=== PATIENT | female | born 1985 | race Caucasian/White ===

== ENCOUNTER 2020-04-03 17:40 | Emergency (ER) | payer OTHER ==
[2020-04-03] MEDS ORDERED: Sodium Chloride 0.9% 1,000 ML IV ONE (17:47)
[2020-04-03] MEDS ORDERED: Morphine 4 MG/ML Syringe IVPUSH ONE (18:00)
[2020-04-03] MEDS ORDERED: Ondansetron 4 MG/2 ML SDV IVPUSH ONE (18:00)
[2020-04-03 18:20] LABS: BLOOD UREA NITROGEN,BUN 12 mg/dL (7.0-18.0); CARBON DIOXIDE,CO2 26.8 mmol/L (21.0-32.0); CHLORIDE,CL 103 mmol/L (98-107); GLUCOSE RANDOM 120 mg/dL (74-106); LIPASE 164 U/L (73-393); POTASSIUM,K 3.8 mmol/L (3.5-5.1); SODIUM,NA 140 mmol/L (136-145)
--- NOTE | 2020-04-03 18:20 | EDM.PDOC ---
ED HPI GENERAL MEDICAL PROBLEM - General Chief Complaint: Abdominal Pain Stated Complaint: UPPER ABDOMINAL PAIN Time Seen by Provider: 04/03/20 17:41 Source of Information: Reports: Patient History Limitations: Reports: No Limitations - History of Present Illness INITIAL COMMENTS - FREE TEXT/NARRATIVE: HISTORY AND PHYSICAL: History of present illness: Patient is a 34-year-old female who presents to the emergency room with complaints of nausea, vomiting and right upper quadrant pain. She states over the past 3 to 4 days she has had mild nausea which has made her afraid to eat. A few hours prior to arrival she started having right upper quadrant pain. She did have some toast and vomited within a few minutes afterwards. She is concerned that this may be her gallbladder. States approximately 12 years ago she did have what she thought were "gallbladder attacks" but was told everything appeared normal after her ultrasound. This resolved within a few weeks. Since then she has not had any other "gallbladder attacks". Patient denies any fever, chills, headache, change in vision, syncope or near syncope. Denies any chest pain, back pain, shortness of breath or cough. Denies any diarrhea, constipation or dysuria. Has not noted any blood in urine or stool. Patient has been eating and drinking appropriately. Review of systems: As per history of present illness and below otherwise all systems reviewed and negative. Past medical history: As per history of present illness and as reviewed below otherwise noncontributory. Surgical history: As per history of present illness and as reviewed below otherwise noncontributory. Social history: See social history for further information Family history: As per history of present illness and as reviewed below otherwise noncontributory. Physical exam: General: Well developed and well nourished. Alert and orientated x 3. Nontoxic in appearance and in no acute distress. Vital signs are stable and have been r eviewed by me. Nursing notes were reviewed. HEENT: Atraumatic, normocephalic, pupils equal and reactive bilaterally, negative for conjunctival pallor or scleral icterus, mucous membranes moist, throat clear, neck supple, nontender, trachea midline. No drooling or trismus noted. No meningeal signs. No hot potato voice noted. Lungs: Clear to auscultation, breath sounds equal bilaterally, chest nontender. Normal work of breathing, no accessory muscles used. Heart: S1S2, regular rate and rhythm without overt murmur Abdomen: Soft, nondistended, right upper quadrant tender. Negative for masses or hepatosplenomegaly. Negative for costovertebral tenderness. Skin: Intact, warm, dry. No lesions or rashes noted. Hematologic: No petechiae or purpra. Mucosa appropriate color and normal nail bed color and refill. Extremities: Atraumatic, moves all extremities per self without difficulty or deficits, negative for cords or calf pain. Neurovascular unremarkable. Neuro: Awake, alert, oriented. Cranial nerves II through XII unremarkable. Cerebellum unremarkable. Motor and sensory unremarkable throughout. Exam nonfocal. Notes: Ultrasound shows small amount of sludge within the gallbladder. Gallbladder contains no shadowing gallstones or collateral bladder wall thickening. No biliary duct dilatation is seen. Mild fatty infiltration within the liver is likely present. She does have a urinary tract infection which we will treat with Macrobid, culture has been added. We discussed signs and symptoms that would prompt her to return to the Emergency Department. I did encourage her to keep a food journal and follow-up with the general surgeon as she should be reevaluated for gallbladder. Medication, follow up and supportive care measures were reviewed and discussed. Voices understanding and is agreeable to plan of care. Denies any further questions or concerns at this time. Diagnostics: CBC, CMP, Lipase, UA, HCG, Gallbladder US Therapeutics: IV fluids, Zofran, Morphine, Macrobid Prescription: Macrobid, Zofran Impression: Abdominal Pain, RUQ UTI Plan: 1. Today your physical exam shows irritation of the gallbladder. Labs show a UTI (bladder infection). 2. Take the antibiotic as prescribed. You can alternate Tylenol and ibuprofen for pain management. Zofran as needed for nausea. Make sure you are drinking plenty of fluids to prevent dehydration. As needed have a bland diet to avoid any furthering abdominal pain. 3. We always encourage you to follow up with your primary care provider or general surgeon for re-evaluation and further care/management. If your symptoms should worsen, new symptoms develop or any of the signs and symptoms we discussed should arise please return to the emergency room or call 911 (if needed). Definitive disposition and diagnosis as appropriate pending reevaluation and review of above. 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 ED EXAM, RENAL/ - Physical Exam Exam: See Below (See dictation) Course - Vital Signs Last Recorded V/S: Last Vital Signs Temp 97.7 F 04/03/20 17:53 Pulse 103 H 04/03/20 17:53 Resp 15 04/03/20 17:53 BP 121/77 04/03/20 17:53 Pulse Ox 98 04/03/20 17:53 - Orders/Labs/Meds Orders: Active Orders 24 hr Category Date Time Status CULTURE URINE [RM] Stat Lab 04/03/20 17:53 Received Labs: Laboratory Tests 04/03/20 04/03/20 04/03/20 Range/Units 17:50 17:50 17:53 WBC 9.33 (4.0-11.0) K/uL RBC 4.94 (4.30-5.90) M/uL Hgb 14.7 (12.0-16.0) g/dL Hct 43.3 (36.0-46.0) % MCV 87.7 (80.0-98.0) fL MCH 29.8 (27.0-32.0) pg MCHC 33.9 (31.0-37.0) g/dL RDW Std Deviation 40.9 (28.0-62.0) fl RDW Coeff of Wallace 13 (11.0-15.0) % Plt Count 296 (150-400) K/uL MPV 9.70 (7.40-12.00) fL Neut % (Auto) 68.4 (48.0-80.0) % Lymph % (Auto) 22.6 (16.0-40.0) % [place] % (Auto) 8.7 (0.0-15.0) % Eos % (Auto) 0.2 (0.0-7.0) % Baso % (Auto) 0.1 (0.0-1.5) % Neut # (Auto) 6.4 H (1.4-5.7) K/uL Lymph # (Auto) 2.1 (0.6-2.4) K/uL [place] # (Auto) 0.8 (0.0-0.8) K/uL Eos # (Auto) 0.0 (0.0-0.7) K/uL Baso # (Auto) 0.0 (0.0-0.1) K/uL Nucleated RBC % 0.0 /100WBC Nucleated RBCs # 0 K/uL Sodium 140 (136-145) mmol/L Potassium 3.8 (3.5-5.1) mmol/L Chloride 103 (98-107) mmol/L Carbon Dioxide 26.8 (21.0-32.0) mmol/L BUN 12 (7.0-18.0) mg/dL Creatinine 0.9 (0.6-1.0) mg/dL Est Cr Clr Drug Dosing 69.66 mL/min Estimated GFR (MDRD) > 60.0 ml/min Glucose 120 H (74-106) mg/dL Calcium 10.0 (8.5-10.1) mg/dL Total Bilirubin 0.3 (0.2-1.0) mg/dL AST 41 H (15-37) IU/L ALT 49 (14-63) IU/L Alkaline Phosphatase 119 H (46-116) U/L Total Protein 7.4 (6.4-8.2) g/dL Albumin 3.9 (3.4-5.0) g/dL Globulin 3.5 (2.6-4.0) g/dL Albumin/Globulin Ratio 1.1 (0.9-1.6) Lipase 164 (73-393) U/L Urine Color YELLOW Urine Appearance SLT CLOUDY Urine pH 6.0 (5.0-8.0) Ur Specific [place] 1.025 (1.001-1.035) Urine Protein NEGATIVE (NEGATIVE) mg/dL Urine Glucose (UA) NEGATIVE (NEGATIVE) mg/dL Urine Ketones NEGATIVE (NEGATIVE) mg/dL Urine Occult Blood MODERATE H (NEGATIVE) Urine Nitrite NEGATIVE (NEGATIVE) Urine Bilirubin NEGATIVE (NEGATIVE) Urine Urobilinogen 0.2 (<2.0) EU/dL Ur Leukocyte Esterase SMALL H (NEGATIVE) Urine RBC 1-3 (0-2/HPF) Urine WBC 2-5 (0-5/HPF) Ur Epithelial Cells FEW (NONE-FEW) Urine Bacteria 2+ H (NEGATIVE) Urine HCG, Qual (NEGATIVE) 04/03/20 Range/Units 17:53 WBC (4.0-11.0) K/uL RBC (4.30-5.90) M/uL Hgb (12.0-16.0) g/dL Hct (36.0-46.0) % MCV (80.0-98.0) fL MCH (27.0-32.0) pg MCHC (31.0-37.0) g/dL RDW Std Deviation (28.0-62.0) fl RDW Coeff of Wallace (11.0-15.0) % Plt Count (150-400) K/uL MPV (7.40-12.00) fL Neut % (Auto) (48.0-80.0) % Lymph % (Auto) (16.0-40.0) % [place] % (Auto) (0.0-15.0) % Eos % (Auto) (0.0-7.0) % Baso % (Auto) (0.0-1.5) % Neut # (Auto) (1.4-5.7) K/uL Lymph # (Auto) (0.6-2.4) K/uL [place] # (Auto) (0.0-0.8) K/uL Eos # (Auto) (0.0-0.7) K/uL Baso # (Auto) (0.0-0.1) K/uL Nucleated RBC % /100WBC Nucleated RBCs # K/uL Sodium (136-145) mmol/L Potassium (3.5-5.1) mmol/L Chloride (98-107) mmol/L Carbon Dioxide (21.0-32.0) mmol/L BUN (7.0-18.0) mg/dL Creatinine (0.6-1.0) mg/dL Est Cr Clr Drug Dosing mL/min Estimated GFR (MDRD) ml/min Glucose (74-106) mg/dL Calcium (8.5-10.1) mg/dL Total Bilirubin (0.2-1.0) mg/dL AST (15-37) IU/L ALT (14-63) IU/L Alkaline Phosphatase (46-116) U/L Total Protein (6.4-8.2) g/dL Albumin (3.4-5.0) g/dL Globulin (2.6-4.0) g/dL Albumin/Globulin Ratio (0.9-1.6) Lipase (73-393) U/L Urine Color Urine Appearance Urine pH (5.0-8.0) Ur Specific [place] (1.001-1.035) Urine Protein (NEGATIVE) mg/dL Urine Glucose (UA) (NEGATIVE) mg/dL Urine Ketones (NEGATIVE) mg/dL Urine Occult Blood (NEGATIVE) Urine Nitrite (NEGATIVE) Urine Bilirubin (NEGATIVE) Urine Urobilinogen (<2.0) EU/dL Ur Leukocyte Esterase (NEGATIVE) Urine RBC (0-2/HPF) Urine WBC (0-5/HPF) Ur Epithelial Cells (NONE-FEW) Urine Bacteria (NEGATIVE) Urine HCG, Qual NEGATIVE (NEGATIVE) Meds: Medications Discontinued Medications Generic Name Dose Route Start Last Admin Trade Name [place] PRN Reason Stop Dose Admin Ciprofloxacin 500 mg 04/03/20 18:33 04/03/20 19:17 Ciprofloxacin Hcl PO 04/03/20 18:34 Not Given ONETIME ONE Sodium Chloride 1,000 mls @ 999 mls/hr 04/03/20 17:47 04/03/20 18:07 Normal Saline IV 04/03/20 18:47 999 mls/hr STAT ONE Administration Ketorolac Tromethamine 30 mg 04/03/20 19:04 04/03/20 19:17 Toradol IVPUSH 04/03/20 19:05 30 mg ONETIME ONE Administration Morphine Sulfate 4 mg 04/03/20 18:00 04/03/20 18:08 Morphine IVPUSH 04/03/20 18:01 4 mg ONETIME ONE Administration Nitrofurantoin Macrocrystals 100 mg 04/03/20 19:08 04/03/20 19:17 Macrobid PO 04/03/20 19:09 100 mg ONETIME ONE Administration Ondansetron HCl 4 mg 04/03/20 18:00 04/03/20 18:08 Zofran IVPUSH 04/03/20 18:01 4 mg ONETIME ONE Administration Departure - Departure Time of Disposition: 19:12 Disposition: Home, Self-Care 01 Clinical Impression: Abdominal pain Qualifiers: Abdominal location: right upper quadrant Qualified Code(s): R10.11 - Right upper quadrant pain UTI (urinary tract infection) Qualifiers: Urinary tract infection type: acute cystitis Hematuria presence: without hematuria Qualified Code(s): N30.00 - Acute cystitis without hematuria - Discharge Information Prescriptions: Nitrofurantoin Monohyd/M-Cryst [Macrobid 100 mg Capsule] 100 mg PO BID 5 Days #10 capsule Ondansetron [Zofran ODT] 4 mg PO Q6H PRN #8 tab.dis PRN Reason: Nausea Instructions: Urinary Tract Infection, Adult Referrals: PCP,None [Primary Care Provider] - Forms: ED Department Discharge Additional Instructions: The following information is given to patients seen in the emergency department who are being discharged to home. This information is to outline your options for follow-up care. We provide all patients seen in our emergency department with a follow-up referral. The need for follow-up, as well as the timing and circumstances, are variable depending upon the specifics of your emergency department visit. If you don't have a primary care physician on staff, we will provide you with a referral. We always advise you to contact your personal physician following an emergency department visit to inform them of the circumstance of the visit and for follow-up with them and/or the need for any referrals to a consulting specialist. The emergency department will also refer you to a specialist when appropriate. This referral assures that you have the opportunity for follow-up care with a specialist. All of these measure are taken in an effort to provide you with optimal care, which includes your follow-up. Under all circumstances we always encourage you to contact your private physician who remains a resource for coordinating your care. When calling for follow-up care, please make the office aware that this follow-up is from your recent emergency room visit. If for any reason you are refused follow-up, please contact the [facility] Emergency Department at and asked to speak to the emergency department charge nurse. [facility] [address] [place] [id number] [facility] [address] [place] [address] Thank you for choosing the [facility] emergency department in [place] for your medical needs today. It was a pleasure caring for you. Today you were seen in the emergency department for righter upper quadrant pain. 1. Today your physical exam shows irritation of the gallbladder. Labs show a UTI (bladder infection). 2. Take the antibiotic as prescribed. You can alternate Tylenol and ibuprofen for pain management. Zofran as needed for nausea. Make sure you are drinking plenty of fluids to prevent dehydration. As needed have a bland diet to avoid any furthering abdominal pain. 3. We always encourage you to follow up with your primary care provider or general surgeon for re-evaluation and further care/management. If your symptoms should worsen, new symptoms develop or any of the signs and symptoms we discussed should arise please return to the emergency room or call 911 (if needed). Sepsis Event Note (ED) - Evaluation Sepsis Screening Result: No Definite Risk - Focused Exam Vital Signs: Vital Signs Temp Pulse Resp BP Pulse Ox 04/03/20 17:53 97.7 F 103 H 15 121/77 98 - My Orders Last 24 Hours: My Active Orders 04/03/20 17:53 CULTURE URINE [RM] Stat - Assessment/Plan Last 24 Hours: My Active Orders 04/03/20 17:53 CULTURE URINE [RM] Stat
[2020-04-03] MEDS ORDERED: Ciprofloxacin 500 MG Tab PO ONE (18:33)
--- NOTE | 2020-04-03 18:57 | US ---
Limited abdominal ultrasound: Multiple real-time images of the upper right abdomen were obtained. Comparison: No prior abdominal ultrasound is available, previous abdominal x-ray of 08/28/19 is available. Findings: Liver is slightly echogenic possibly due to mild fatty infiltration. Gallbladder contains no shadowing gallstones but shows evidence of mild amount of sludge. No gallbladder wall thickening or biliary duct dilatation is seen. Right kidney shows no hydronephrosis or mass. Right kidney has a length of 9.6 cm. Pancreas shows no discrete abnormality. Aorta shows no aneurysm. Inferior vena cava is patent. Impression: 1. Small amount of sludge within the gallbladder. Gallbladder contains no shadowing gallstones or gallbladder wall thickening. No biliary duct dilatation is seen. 2. Mild fatty infiltration within the liver is likely present. 3. No additional abnormality is identified on right upper quadrant abdominal ultrasound. Diagnostic code #3 This report was dictated in MDT
[2020-04-03] MEDS ORDERED: Ketorolac 30 MG/ML SDV IVPUSH ONE (19:04)
[2020-04-03] MEDS ORDERED: Nitrofurantoin Monohydrate/Macrocrystalline 100 MG Cap PO ONE (19:08)
== END 2020-04-03 19:45 | disposition home or self-care (01) ==
LOC: MW.ED 17:40
DX: N30.00 Acute cystitis without hematuria (principal); R10.11 Right upper quadrant pain; Z88.1 Allergy status to other antibiotic agents; Z88.0 Allergy status to penicillin; Z88.2 Allergy status to sulfonamides
CPT/HCPCS: 36415; 76705; 80053; 81001; 81025; 83690; 85025; 87086; 87088; 87186; 96361; 96374; 96375; 99284; A9270; J1885; J2270; J2405; J7030

== ENCOUNTER 2020-04-13 07:31 | Day surgery (SDC) | payer OTHER ==
[~2020-04-13 07:31] MED LIST: Lactated Ringers 1,000 ML IV SCH; cefOXitin 2 GM in Premix Bag 1 BAG IV ONE
[2020-04-13] MEDS ORDERED: Midazolam 1 MG/ML 2 ML SDV ONE (08:00)
[2020-04-13] MEDS ORDERED: Propofol 200 MG/20 ML SDV ONE (08:00)
[2020-04-13] MEDS ORDERED: Ondansetron 4 MG/2 ML SDV ONE (08:00)
[2020-04-13] MEDS ORDERED: fentaNYL 100 MCG/2 ML SDV ONE ×2 (08:00→09:18)
[2020-04-13] MEDS ORDERED: Lidocaine 2% 5 ML SDV ONE (08:00)
[2020-04-13] MEDS ORDERED: Scopolamine 1.5 MG Transdermal Patch TRDERM PRN (08:16)
--- NOTE | 2020-04-13 08:16 | PCM.PREANE ---
Preanesthetic Assessment - Anesthesia/Transfusion/Family Hx Anesthesia History: Prior Anesthesia Without Reaction Family History of Anesthesia Reaction: No Transfusion History: No Prior Transfusion(s) - Review of Systems General: No Symptoms Pulmonary: No Symptoms Cardiovascular: No Symptoms Gastrointestinal: No Symptoms Neurological: No Symptoms Other: Reports: None - Physical Assessment NPO Status Date: 04/12/20 Height: 5 ft 2 in Weight: 78.471 kg ASA Class: 2 Mental Status: Alert & Oriented x3 Airway Class: Mallampati = 1 Dentition: Reports: Normal Dentition ROM/Head Extension: Full Lungs: Clear to Auscultation, Normal Respiratory Effort Cardiovascular: Regular Rate, Regular Rhythm - Allergies Allergies/Adverse Reactions: Allergies Allergy/AdvReac Type Severity Reaction Status Date / Time azithromycin Allergy Stomach Verified 04/09/20 09:41 Upset hydrocodone Allergy Hives Verified 04/09/20 09:41 Penicillins Allergy Hives Verified 04/09/20 09:41 Sulfa (Sulfonamide Allergy Hives Verified 04/09/20 09:41 Antibiotics) - Blood Blood Available: No - Anesthesia Plan Pre-Op Medication Ordered: Other (scop) - Acknowledgements Anesthesia Type Planned: General Anesthesia Pt an Appropriate Candidate for the Planned Anesthesia: Yes Alternatives and Risks of Anesthesia Discussed w Pt/Guardian: Yes Pt/Guardian Understands and Agrees with Anesthesia Plan: Yes Additional Comments: PMH: migraine, renal stones, gout PreAnesthesia Questionnaire HEENT History: Reports: None Cardiovascular History: Reports: None Respiratory History: Reports: None Gastrointestinal History: Reports: Cholelithiasis Other Gastrointestinal History: states has been having occasional heart burn and right upper quad pain recently Genitourinary History: Reports: Renal Calculus 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) Other OB/BYN History: Partial Hysterectomy Musculoskeletal History: Reports: Gout Neurological History: Reports: Migraines Psychiatric History: Reports: Anxiety Endocrine/Metabolic History: Reports: Obesity/BMI 30+ Hematologic History: Reports: None Immunologic History: Reports: None Oncologic (Cancer) History: Reports: None Dermatologic History: Reports: None - Infectious Disease History Infectious Disease History: Reports: None - Past Surgical History Head Surgeries/Procedures: Reports: None HEENT Surgical History: Reports: Oral Surgery Other HEENT Surgeries/Procedures: states had an impacted tooth removed at age 17 Female Surgical History: Reports: Hysterectomy, Kidney stone extraction - SUBSTANCE USE Smoking Status *Q: Never Smoker Recreational Drug Use History: No - HOME MEDS Home Medications: Home Meds . [No Known Home Meds] 04/09/20 [History] - CURRENT (IN HOUSE) MEDS Current Meds: Current Medications Lactated Ringer's (Ringers, Lactated) 1,000 mls @ 125 mls/hr IV ASDIRECTED ANAMARIA Discontinued Medications Fentanyl (Sublimaze) Confirm Administered Dose 100 mcg .ROUTE .STK-MED ONE Stop: 04/13/20 08:01 Cefoxitin Sodium 2 gm/ Premix 50 mls @ 100 mls/hr IV ONETIME ONE Stop: 04/13/20 07:29 Lidocaine (Xylocaine-Mpf 2%) Confirm Administered Dose 5 ml .ROUTE .STK-MED ONE Stop: 04/13/20 08:01 Midazolam HCl (Versed 1 Mg/Ml) Confirm Administered Dose 2 mg .ROUTE .STK-MED ONE Stop: 04/13/20 08:01 Ondansetron HCl (Zofran) Confirm Administered Dose 4 mg .ROUTE .STK-MED ONE Stop: 04/13/20 08:01 Propofol (Diprivan 20 Ml) Confirm Administered Dose 200 mg .ROUTE .STK-MED ONE Stop: 04/13/20 08:01
[2020-04-13] MEDS ORDERED: HYDROmorphone 2 MG/ML Syringe ONE (08:38)
[2020-04-13] MEDS ORDERED: cefOXitin 1 GM Vial ONE (08:46)
[2020-04-13] MEDS ORDERED: ceFAZolin 1 GM Vial ONE (08:47)
[2020-04-13] MEDS ORDERED: Bupivacaine 0.5% 10 ML SDV ONE (08:47)
[2020-04-13] MEDS ORDERED: Famotidine 20 MG/2 ML SDV ONE (08:56)
[2020-04-13] MEDS ORDERED: diphenhydrAMINE 50 MG/ML SDV ONE (08:57)
[2020-04-13] MEDS ORDERED: Dexamethasone 4 MG/ML 5 ML MDV ONE (08:57)
[2020-04-13] MEDS ORDERED: Naloxone 0.4 MG/ML Syringe IVPUSH PRN (09:41)
[2020-04-13] MEDS ORDERED: 50% Dextrose in Water 50 ML Syringe IVPUSH PRN (09:41)
[2020-04-13] MEDS ORDERED: Albuterol 0.083% 2.5 MG/3 ML Neb Soln NEB PRN (09:41)
[2020-04-13] MEDS ORDERED: fentaNYL 100 MCG/2 ML SDV IVPUSH PRN (09:41)
[2020-04-13] MEDS ORDERED: Atropine 0.1 MG/ML 10 ML Syringe IVPUSH PRN ×2 (09:41)
[2020-04-13] MEDS ORDERED: EPINEPHrine 1:10,000 1 MG/10 ML Syringe IVPUSH PRN (09:41)
[2020-04-13] MEDS ORDERED: Ketorolac 30 MG/ML SDV ONE (09:49)
[2020-04-13] MEDS ORDERED: Bupivacaine 0.5% 30 ML SDV ONE (09:51)
[2020-04-13] MEDS ORDERED: Lidocaine 1% 20 ML MDV ONE (09:53)
[2020-04-13] MEDS ORDERED: Glycopyrrolate 0.2 MG/ML SDV ONE (09:55)
[2020-04-13] MEDS ORDERED: Morphine 10 MG/ML Syringe IVPUSH PRN (10:23)
[2020-04-13] MEDS ORDERED: Ketorolac 10 MG Tab PO PRN (10:23)
--- NOTE | 2020-04-13 10:25 | PCM.OPNOTE ---
- General Post-Op/Procedure Note Date of Surgery/Procedure: 04/13/20 Operative Procedure(s): Laparoscopic cholecystectomy Pre Op Diagnosis: Right upper quadrant pain. Biliary sludge. Biliary colic. Post-Op Diagnosis: Same Anesthesia Technique: General ET Tube (ASA II) Primary Surgeon: Jamie Higuera Fluid Replacement, Intraop: 2,200 EBL in mLs: 15 Condition: Good Free Text/Narrative:: DICTATION [id number] CPT CODE [id number]
[2020-04-13] MEDS ORDERED: Lactated Ringers 1,000 ML IV SCH (10:30)
--- NOTE | 2020-04-13 10:53 | PCM.POSTAN ---
POST ANESTHESIA ASSESSMENT - MENTAL STATUS Mental Status: Alert, Oriented - VITAL SIGNS Vital Signs: Last Vital Signs Temp 98.1 F 04/13/20 10:17 Pulse 95 04/13/20 10:46 Resp 10 L 04/13/20 10:46 BP 103/60 04/13/20 10:46 Pulse Ox 92 L 04/13/20 10:46 - RESPIRATORY Respiratory Status: Respiratory Rate WNL, Airway Patent, O2 Saturation Stable - CARDIOVASCULAR CV Status: Pulse Rate WNL, Blood Pressure Stable - GASTROINTESTINAL GI Status: No Symptoms - PAIN Pain Score: 0 - POST OP HYDRATION Hydration Status: Adequate & Stable - OBSERVATIONS Free Text/Narrative:: No nausea and requiring no additional pain medication after surgery. Pt stable for tx to phase II recovery.
[2020-04-13] MEDS ORDERED: oxyCODONE 5 MG Tab PO ONE (11:58)
--- NOTE | 2020-04-13 12:53 | OR ---
SURGEON: Jamie Higuera M.D. DATE OF PROCEDURE: 04/13/2020 OPERATION PERFORMED: Laparoscopic cholecystectomy. PRIMARY SURGEON: Jamie Higuera MD MEDICAL DOCTOR NUCLEAR MEDICINE: assistant head cashier: Carole Plasencia. ANESTHESIA: General endotracheal. ASA CLASSIFICATION: II. PREOPERATIVE DIAGNOSIS: Right upper quadrant pain with biliary colic, gallbladder sludge. POSTOPERATIVE DIAGNOSIS: Right upper quadrant pain with biliary colic, gallbladder sludge. ESTIMATED BLOOD LOSS: 15 mL. INTRAOPERATIVE FLUID REPLACEMENT: 2200 mls of crystalloid. DESCRIPTION OF PROCEDURE: The patient was taken to the operating room, placed on the operating table in the supine position. Time-out was called for appropriate identification of the patient and procedure. Thigh-high TEDs and sequential compression boots were placed. Following satisfactory attainment of general endotracheal anesthesia, a Carroll catheter was placed in the patient's urinary bladder. The abdomen was prepped with DuraPrep solution. Sterile drapes were applied. Skin just below the umbilicus was infiltrated with 0.5% Marcaine solution. Skin incision was made and deepened through the subcutaneous tissue obtaining hemostasis with the use of electrocautery. Veress needle was introduced into the peritoneal cavity. Saline drop test was positive. Carbon dioxide pneumoperitoneum was established with the release set at 13 cm of water. Once satisfactory pneumoperitoneum was established, 12 mm subxiphoid, 5 mm midclavicular, and 5 mm anterior axillary ports were placed. Each incision had preemptively been infiltrated with 0.5% Marcaine solution. The patient was now positioned with her feet down and rolled to the left. Under camera vision, the 12 mm subxiphoid, midclavicular, and anterior axillary ports were placed. Gallbladder was grasped and cholecystohepatic triangle was dissected free obtaining a good critical view of both the cystic artery and cystic duct. Each structure was serially hemoclipped and divided with the laparoscopic Metzenbaum scissors. The gallbladder was then dissected away from its bed using electrocautery. Small bleeding points were electrocoagulated. No bile was noted. The gallbladder was not entered during the procedure. Once the gallbladder was amputated, this was placed in an Endopouch. The right upper quadrant was irrigated with 1% Ancef solution and all fluid was aspirated. The dome of the diaphragm was then irrigated with 250 mL of saline containing 10 mL of 0.5% Marcaine solution, that fluid was left in place. The bed of the gallbladder was packed with 1 Surgicel and held in place. With that all accomplished, the Endopouch containing gallbladder and 12 mm subxiphoid port were removed. Under camera vision, the 5 mm midclavicular and anterior axillary ports were removed and finally the infraumbilical camera and port were removed. The subxiphoid and infraumbilical incisions were closed in 2 layers approximating the subcutaneous tissue with 3-0 Vicryl and the skin with subcuticular 4-0 Monocryl. The anterior axillary and midclavicular incisions were closed with subcuticular 4-0 Monocryl. All incisions were Steri-Stripped and dressed with sterile Tegaderm pads. Sponge, needle, and instrument counts were all correct. Carroll catheter was removed prior to emergence from anesthesia. Following emergence from anesthesia and extubation, the patient was taken to recovery room in stable condition. JULIEN / MARIELENA /[id number] ANAHI
--- NOTE | 2020-04-13 12:57 | PCM48HPAN ---
Post Anesthesia Note - EVALUATION WITHIN 48HRS OF ANESTHETIC Vital Signs in Normal Range: Yes Patient Participated in Evaluation: Yes Respiratory Function Stable: Yes Airway Patent: Yes Cardiovascular Function Stable: Yes Hydration Status Stable: Yes Pain Control Satisfactory: Yes Nausea and Vomiting Control Satisfactory: Yes Mental Status Recovered: Yes Vital Signs: Last Vital Signs Temp 98.1 F 04/13/20 10:17 Pulse 96 04/13/20 10:51 Resp 11 L 04/13/20 10:51 BP 106/68 04/13/20 10:51 Pulse Ox 96 04/13/20 10:51
== END 2020-04-13 13:30 | disposition home or self-care (01) ==
LOC: MW.SDS 07:31
PROVIDERS: ATTEND Surgery
DX: K80.44 Calculus of bile duct with chronic cholecystitis without obstruction (principal); K82.8 Other specified diseases of gallbladder; E66.9 Obesity, unspecified; N20.0 Calculus of kidney; M10.9 Gout, unspecified; F41.9 Anxiety disorder, unspecified; Z88.0 Allergy status to penicillin; Z88.1 Allergy status to other antibiotic agents; Z88.5 Allergy status to narcotic agent; Z88.2 Allergy status to sulfonamides; Z68.31 Body mass index [BMI] 31.0-31.9, adult; Z90.710 Acquired absence of both cervix and uterus; Z83.79 Family history of other diseases of the digestive system; Z72.89 Other problems related to lifestyle
CPT/HCPCS: 47562; A9270; J0690; J0694; J1100; J1170; J1200; J1885; J2001; J2250; J2405; J2704; J3490; J7120; 00790; 88304; J3010

== ENCOUNTER 2021-03-22 01:14 | Emergency (ER) | payer OTHER ==
[2021-03-22] MEDS ORDERED: Sodium Chloride 0.9% 1,000 ML IV ONE (03:00)
--- NOTE | 2021-03-22 03:04 | EDM.PDOC ---
ED HPI GENERAL MEDICAL PROBLEM - General Chief Complaint: Abdominal Pain Stated Complaint: APPENDICITIS OR KIDNEY STONE Time Seen by Provider: 03/22/21 02:57 Source of Information: Reports: Patient History Limitations: Reports: No Limitations - History of Present Illness INITIAL COMMENTS - FREE TEXT/NARRATIVE: Patient is a 35-year-old female presents today for right-sided abdominal pain. Patient states that pain started few days ago she saw her PMD who did labs and a CT scan. She did not know the results of the scan has not been called with them. States she came in today because she has some increased vomiting and pain. She was sent home with Toradol but did not continue taking the Toradol she read could damage her kidneys. She states the pain is similar to the pain she is been having but it has moved to her right lower quadrant now. She is not having any urinary symptoms no blood in her urine or increased urinary frequency. No fever chills. Right Flank Pain Score (Numeric/FACES): 10 - Related Data Allergies Allergy/AdvReac Type Severity Reaction Status Date / Time azithromycin Allergy Stomach Verified 04/13/20 09:05 Upset hydrocodone Allergy Hives Verified 04/13/20 09:05 Penicillins Allergy Hives Verified 04/13/20 09:05 Sulfa (Sulfonamide Allergy Hives Verified 04/13/20 09:05 Antibiotics) Home Meds: Home Meds . [No Known Home Meds] 03/22/21 [History] Past Medical History HEENT History: Reports: None Cardiovascular History: Reports: None Respiratory History: Reports: None Gastrointestinal History: Reports: Cholelithiasis Other Gastrointestinal History: states has been having occasional heart burn and right upper quad pain recently Genitourinary History: Reports: Renal Calculus [employer] History: Reports: Other (See Below) Other [employer] History: Partial Hysterectomy Musculoskeletal History: Reports: Gout Neurological History: Reports: Migraines Psychiatric History: Reports: Anxiety Endocrine/Metabolic History: Reports: Obesity/BMI 30+ Hematologic History: Reports: None Immunologic History: Reports: None Oncologic (Cancer) History: Reports: None Dermatologic History: Reports: None - Infectious Disease History Infectious Disease History: Reports: None - Past Surgical History Head Surgeries/Procedures: Reports: None HEENT Surgical History: Reports: Oral Surgery Other HEENT Surgeries/Procedures: states had an impacted tooth removed at age 17 Female Surgical History: Reports: Hysterectomy, Kidney stone extraction Social & Family History - Family History Family Medical History: No Pertinent Family History - Caffeine Use Caffeine Use: Reports: None ED ROS GENERAL - Review of Systems Review Of Systems: See Below Constitutional: Reports: No Symptoms HEENT: Reports: No Symptoms Respiratory: Reports: No Symptoms Cardiovascular: Reports: No Symptoms Endocrine: Reports: No Symptoms GI/Abdominal: Reports: Abdominal Pain : Reports: No Symptoms Musculoskeletal: Reports: No Symptoms Skin: Reports: No Symptoms Neurological: Reports: No Symptoms Psychiatric: Reports: No Symptoms Hematologic/Lymphatic: Reports: No Symptoms Immunologic: Reports: No Symptoms ED EXAM, GI/ABD - Physical Exam Exam: See Below Exam Limited By: No Limitations General Appearance: Alert, WD/WN, No Apparent Distress Neck: Normal Inspection Respiratory/Chest: No Respiratory Distress, Lungs Clear, Normal Breath Sounds Cardiovascular: Normal Peripheral Pulses, Regular Rate, Rhythm GI/Abdominal Exam: Normal Bowel Sounds, Soft, Non-Tender Neurological: Alert, Oriented Course - Vital Signs Last Recorded V/S: Last Vital Signs Temp 97.7 F 03/22/21 02:35 Pulse 100 03/22/21 02:35 Resp 16 03/22/21 02:35 BP 112/76 03/22/21 02:35 Pulse Ox 98 03/22/21 02:35 - Orders/Labs/Meds Labs: Laboratory Tests 03/22/21 03/22/21 03/22/21 Range/Units 02:40 02:40 02:45 WBC 9.62 (4.0-11.0) K/uL RBC 4.49 (4.30-5.90) M/uL Hgb 13.4 (12.0-16.0) g/dL Hct 38.8 (36.0-46.0) % MCV 86.4 (80.0-98.0) fL MCH 29.8 (27.0-32.0) pg MCHC 34.5 (31.0-37.0) g/dL RDW Std Deviation 41.4 (28.0-62.0) fl RDW Coeff of Wallace 13 (11.0-15.0) % Plt Count 272 (150-400) K/uL MPV 9.50 (7.40-12.00) fL Neut % (Auto) 54.6 (48.0-80.0) % Lymph % (Auto) 32.8 (16.0-40.0) % [place] % (Auto) 10.4 (0.0-15.0) % Eos % (Auto) 2.0 (0.0-7.0) % Baso % (Auto) 0.2 (0.0-1.5) % Neut # (Auto) 5.3 (1.4-5.7) K/uL Lymph # (Auto) 3.2 H (0.6-2.4) K/uL [place] # (Auto) 1.0 H (0.0-0.8) K/uL Eos # (Auto) 0.2 (0.0-0.7) K/uL Baso # (Auto) 0.0 (0.0-0.1) K/uL Nucleated RBC % 0.0 /100WBC Nucleated RBCs # 0 K/uL Sodium (136-145) mmol/L Potassium (3.5-5.1) mmol/L Chloride (98-107) mmol/L Carbon Dioxide (21.0-32.0) mmol/L BUN (7.0-18.0) mg/dL Creatinine (0.6-1.0) mg/dL Est Cr Clr Drug Dosing mL/min Estimated GFR (MDRD) ml/min Glucose (74-106) mg/dL Calcium (8.5-10.1) mg/dL Total Bilirubin (0.2-1.0) mg/dL AST (15-37) IU/L ALT (14-63) IU/L Alkaline Phosphatase (46-116) U/L Total Protein (6.4-8.2) g/dL Albumin (3.4-5.0) g/dL Globulin (2.6-4.0) g/dL Albumin/Globulin Ratio (0.9-1.6) Urine Color YELLOW Urine Appearance HAZY Urine pH 6.0 (5.0-8.0) Ur Specific [place] >= 1.030 (1.001-1.035) Urine Protein NEGATIVE (NEGATIVE) mg/dL Urine Glucose (UA) NEGATIVE (NEGATIVE) mg/dL Urine Ketones NEGATIVE (NEGATIVE) mg/dL Urine Occult Blood SMALL H (NEGATIVE) Urine Nitrite NEGATIVE (NEGATIVE) Urine Bilirubin NEGATIVE (NEGATIVE) Urine Urobilinogen 0.2 (<2.0) EU/dL Ur Leukocyte Esterase NEGATIVE (NEGATIVE) Urine RBC 1-2 (0-2/HPF) Urine WBC 0-2 (0-5/HPF) Ur Epithelial Cells RARE (NONE-FEW) Urine Bacteria FEW (NEGATIVE) Urine Mucus LIGHT (NONE-MOD) Urine HCG, Qual NEGATIVE (NEGATIVE) 03/22/21 Range/Units 02:45 WBC (4.0-11.0) K/uL RBC (4.30-5.90) M/uL Hgb (12.0-16.0) g/dL Hct (36.0-46.0) % MCV (80.0-98.0) fL MCH (27.0-32.0) pg MCHC (31.0-37.0) g/dL RDW Std Deviation (28.0-62.0) fl RDW Coeff of Wallace (11.0-15.0) % Plt Count (150-400) K/uL MPV (7.40-12.00) fL Neut % (Auto) (48.0-80.0) % Lymph % (Auto) (16.0-40.0) % [place] % (Auto) (0.0-15.0) % Eos % (Auto) (0.0-7.0) % Baso % (Auto) (0.0-1.5) % Neut # (Auto) (1.4-5.7) K/uL Lymph # (Auto) (0.6-2.4) K/uL [place] # (Auto) (0.0-0.8) K/uL Eos # (Auto) (0.0-0.7) K/uL Baso # (Auto) (0.0-0.1) K/uL Nucleated RBC % /100WBC Nucleated RBCs # K/uL Sodium 138 (136-145) mmol/L Potassium 4.0 (3.5-5.1) mmol/L Chloride 104 (98-107) mmol/L Carbon Dioxide 26.6 (21.0-32.0) mmol/L BUN 12 (7.0-18.0) mg/dL Creatinine 0.8 (0.6-1.0) mg/dL Est Cr Clr Drug Dosing 81.19 mL/min Estimated GFR (MDRD) > 60.0 ml/min Glucose 85 (74-106) mg/dL Calcium 8.8 (8.5-10.1) mg/dL Total Bilirubin 0.1 L (0.2-1.0) mg/dL AST 28 (15-37) IU/L ALT 30 (14-63) IU/L Alkaline Phosphatase 108 (46-116) U/L Total Protein 6.8 (6.4-8.2) g/dL Albumin 3.3 L (3.4-5.0) g/dL Globulin 3.5 (2.6-4.0) g/dL Albumin/Globulin Ratio 0.9 (0.9-1.6) Urine Color Urine Appearance Urine pH (5.0-8.0) Ur Specific [place] (1.001-1.035) Urine Protein (NEGATIVE) mg/dL Urine Glucose (UA) (NEGATIVE) mg/dL Urine Ketones (NEGATIVE) mg/dL Urine Occult Blood (NEGATIVE) Urine Nitrite (NEGATIVE) Urine Bilirubin (NEGATIVE) Urine Urobilinogen (<2.0) EU/dL Ur Leukocyte Esterase (NEGATIVE) Urine RBC (0-2/HPF) Urine WBC (0-5/HPF) Ur Epithelial Cells (NONE-FEW) Urine Bacteria (NEGATIVE) Urine Mucus (NONE-MOD) Urine HCG, Qual (NEGATIVE) Meds: Medications Discontinued Medications Generic Name Dose Route Start Last Admin Trade Name Peterq PRN Reason Stop Dose Admin Sodium Chloride 1,000 mls @ 999 mls/hr 03/22/21 03:00 03/22/21 03:21 Normal Saline IV 03/22/21 04:00 999 mls/hr .BOLUS ONE Administration Iopamidol 100 ml 03/22/21 04:06 03/22/21 04:06 Iopamidol 755 Mg/Ml 500 Ml Multipack Bottle IVPUSH 03/22/21 04:07 100 ml ONETIME STA Administration Ketorolac Tromethamine 30 mg 03/22/21 03:29 03/22/21 04:04 Ketorolac 30 Mg/Ml Sdv IVPUSH 03/22/21 03:30 30 mg ONETIME ONE Administration - Re-Assessments/Exams Free Text/Narrative Re-Assessment/Exam: 03/22/21 05:[address] scan shows some free pelvic fluid. This could be disrupted patient pain patient will be discharged and told to take Motrin Tylenol as needed [id number]. Departure - Departure Time of Disposition: 05:27 Disposition: Home, Self-Care 01 Condition: Good Clinical Impression: Free fluid in pelvis - Discharge Information *PRESCRIPTION DRUG MONITORING PROGRAM REVIEWED*: Not Applicable *COPY OF PRESCRIPTION DRUG MONITORING REPORT IN PATIENT CHRISTY: Not Applicable Instructions: Abdominal Pain, Adult Referrals: Aimee Toribio NP [Primary Care Provider] - Forms: ED Department Discharge Additional Instructions: The following information is given to patients seen in the emergency department who are being discharged to home. This information is to outline your options for follow-up care. We provide all patients seen in our emergency department with a follow-up referral. The need for follow-up, as well as the timing and circumstances, are variable depending upon the specifics of your emergency department visit. If you don't have a primary care physician on staff, we will provide you with a referral. We always advise you to contact your personal physician following an emergency department visit to inform them of the circumstance of the visit and for follow-up with them and/or the need for any referrals to a consulting specialist. The emergency department will also refer you to a specialist when appropriate. This referral assures that you have the opportunity for follow-up care with a specialist. All of these measure are taken in an effort to provide you with optimal care, which includes your follow-up. Under all circumstances we always encourage you to contact your private physician who remains a resource for coordinating your care. When calling for follow-up care, please make the office aware that this follow-up is from your recent emergency room visit. If for any reason you are refused follow-up, please contact the [facility] at and asked to speak to the emergency department charge nurse. Please follow up with your primary care physician. If you do not have a primary care physician, see below: [facility] [address] [place] [id number] [facility] [address] [place] [address] You were seen today for abdominal pain. We did a CAT scan that shows free fluid likely coming from an ovarian cyst rupture. We recommend you follow-up with your primary care physician or [facility] for further care. If you have any other concerning signs or symptoms please return to the ED. Sepsis Event Note (ED) - Focused Exam Vital Signs: Vital Signs Temp Pulse Resp BP Pulse Ox 03/22/21 02:35 97.7 F 100 16 112/76 98 - Assessment/Plan Plan: Patient is a 35-year-old female who presents today for right-sided abdominal pain for the past few days. Patient exam states she comes in because of the nausea and consistent pain. States he already had outpatient work-up is they are waiting for results. We cannot locate the results. We will get basic labs and see if we can get a copy patient CAT scan.
[2021-03-22 03:16] LABS: BLOOD UREA NITROGEN,BUN 12 mg/dL (7.0-18.0); CARBON DIOXIDE,CO2 26.6 mmol/L (21.0-32.0); CHLORIDE,CL 104 mmol/L (98-107); GLUCOSE RANDOM 85 mg/dL (74-106); SODIUM,NA 138 mmol/L (136-145)
[2021-03-22] MEDS ORDERED: Ketorolac 30 MG/ML SDV IVPUSH ONE (03:29)
[2021-03-22] MEDS ORDERED: Iopamidol 755 MG/ML 500 ML Multipack Bottle IVPUSH STA (04:06)
--- NOTE | 2021-03-22 05:20 | CT ---
Indication: Right-sided abdominal pain Technique: Contrast enhanced axial CT imaging through the abdomen and pelvis. 100 mL Isovue 370 contrast agent was administered intravenously. Sagittal and coronal reconstructions are provided. Comparison: None Findings: No abnormalities are demonstrated relating to the liver, spleen, pancreas, and adrenal gland. Cholecystectomy clips are noted. There is a small left renal cortical cyst with peripheral calcification versus layering milk of calcium. The kidneys are otherwise unremarkable. The portal vein is patent. The abdominal aorta is normal in caliber. There is no abdominal lymphadenopathy. The stomach and duodenum are unremarkable. There is no small bowel wall thickening or abnormal distention. The appendix is noninflamed. There is no colonic wall thickening or mesenteric edema. Moderate free fluid is noted in the pelvis. A 2.5 cm irregular cystic focus in the right ovary likely represents an involuting cyst or follicle. The left ovary is unremarkably. The uterus is absent. There is no appreciable inner bladder wall thickening. The osseous structures are unremarkable. Two irregular ground-glass opacities are noted in the visualized posterior right lower lobe, suspicious for infiltrates. Impression: 1. Moderate pelvic free fluid. A 2.5 cm irregular cystic focus in the right ovary, most likely representing an involuting cyst or follicle. Normal appendix. 2. Two irregular ground-glass opacities in the right lower lobe, suspicious for infiltrates. COVID-19 pneumonia is a consideration. Correlate clinically. Please note that all CT scans at this facility use dose modulation, iterative reconstruction, and/or weight-based dosing when appropriate to reduce radiation dose to as low as reasonably achievable. Dictated by Van Addison MD @ 03/22/2021 5:19:[address] Van Addison @ Mar 22 2021 5:19AM
== END 2021-03-22 05:40 | disposition home or self-care (01) ==
LOC: MW.ED 01:14
DX: R18.8 Other ascites (principal); E66.9 Obesity, unspecified; Z68.30 Body mass index [BMI] 30.0-30.9, adult; Z88.1 Allergy status to other antibiotic agents; Z88.5 Allergy status to narcotic agent; Z88.0 Allergy status to penicillin; Z88.2 Allergy status to sulfonamides
CPT/HCPCS: 36415; 74177; 80053; 81001; 81025; 85025; 96374; 99284; J1885; J7030; Q9967

== ENCOUNTER 2021-07-31 09:58 | Emergency (ER) | payer OTHER ==
--- NOTE | 2021-07-31 10:05 | EDM.PDOC ---
ED HPI GENERAL MEDICAL PROBLEM - General Chief Complaint: Genitourinary Problem Stated Complaint: "POSSIBLE KIDNEY STONE" Time Seen by Provider: 07/31/21 10:00 Source of Information: Reports: Patient History Limitations: Reports: No Limitations - History of Present Illness INITIAL COMMENTS - FREE TEXT/NARRATIVE: HISTORY AND PHYSICAL: History of present illness: Patient is a 35-year-old female who presents to the emergency room with complaints of left side abdominal pain. She states it feels like a sharp stabbing pressure and is concerned she has a kidney stone. She has some nausea, vomiting and dysuria that started today. Patient denies any fever, chills, headache, change in vision, syncope or near syncope. Denies any chest pain, back pain, shortness of breath or cough. Denies any diarrhea, constipation or concern for . Has not noted any blood in urine or stool. Patient has been eating and drinking appropriately. No recent travel or sick contacts. Review of systems: As per history of present illness and below otherwise all systems reviewed and negative. Past medical history: As per history of present illness and as reviewed below otherwise noncont ributory. Surgical history: As per history of present illness and as reviewed below otherwise noncontributory. Social history: See social history for further information Family history: As per history of present illness and as reviewed below otherwise noncontributory. Physical exam: General: Well developed and well nourished. Alert and orientated x 3. Nontoxic in appearance and in no acute distress. Vital signs are stable and have been reviewed by me. Nursing notes were reviewed. HEENT: Atraumatic, normocephalic, pupils equal and reactive bilaterally, negative for conjunctival pallor or scleral icterus, mucous membranes moist, TMs normal bilaterally, throat clear, neck supple, nontender, trachea midline. No drooling or trismus noted. No meningeal signs. No hot potato voice noted. Lungs: Clear to auscultation bilaterally. No wheezes, rales, or rhonchi. Chest nontender. Normal work of breathing, no accessory muscles used. Heart: S1S2, regular rate and rhythm without overt murmur, gallops, or rubs. No JVD. No peripheral edema Abdomen: Soft, nondistended, left upper quadrant tenderness/left lower quadrant tenderness. Normoactive bowel sounds. Negative for masses or costovertebral tenderness. Skin: Intact, warm, dry. No lesions or rashes noted. Hematologic: No petechiae or purpra. Mucosa appropriate color and normal nail bed color and refill. Extremities: Atraumatic, moves all extremities per self without difficulty or deficits, negative for cords or calf pain. Neurovascular unremarkable. Neuro: Awake, alert, oriented. Cranial nerves II through XII unremarkable. Cerebellum unremarkable. Motor and sensory unremarkable throughout. Exam nonfocal. Psychiatric: Mood and affect are appropriate. Normal thought process. Answering questions appropriately. Please note that the patient was seen and evaluated during the 2019 SARS-CoV-2 novel coronavirus pandemic period. Community viral transmission is ongoing at time of this encounter and the emergency department is operating under pandemic response procedures. Medical Decision Making: Patient is a 35-year-old female who presents to the emergency room with complaints of left lateral side and left upper quadrant pain. She states it feels like a kidney stone. Patient appears to be fairly uncomfortable and writhing on the cot. She has had some nausea and vomiting prior to arrival. She is tender to touch without flank tenderness. She is agreeable to lab work and possible CT of the abdomen and pelvis to rule out stone. Patient does have several allergies, states that Toradol works best for her with her previous kidney stone. Patient serum lab work is unremarkable. Her urine is negative for nitrates, 25- 30 WBCs and +4 bacteria (although is contaminated) culture has been added. CT abd/pelvis shows an obstructing cluster of stones in the distal left ureter/ureterovesical junction measuring up to approximately 6 millimeters in total. Three or 4 stones appear to be present. There is left hydrouretero nephrosis. 1115: Dr Florence was consulted on this case. Since the urine is contaminated, the patient doesn't have a fever, no leukocytosis, and is feeling better at this time. Patient call follow up with him on Monday. If patient does get any fever, increased pain etc... he would like her to go through the [facility] or our ED for immediate attention. I have talked with the patient about today's findings, in addition to providing specific details for plan of care. Patient is aware of recommendations and agreeable. We will place patient on Cipro due to her antibiotic allergies. Reassessment at the time of disposition demonstrates that the patient is in no acute distress. The patient is stable for discharge, counseling was provided and we discussed in great detail signs and symptoms that would prompt them to return to the Emergency Department. Medication, follow up and supportive care measures were reviewed and discussed. Voices understanding and is agreeable to plan of care. Denies any further questions or concerns at this time. Diagnostics: CBC, CMP, UA, urine , CT abdomen and pelvis Therapeutics: IV fluid, Toradol, Zofran, Prescription: Cipro Impression: UTI Kidney stone, left Plan: 1. You were evaluated today on an emergent basis. Your CT shows a cluster of stones in the left ureter. I did speak with Dr Florence at [facility] about your case. He would like you to call the urology clinic early Monday to be seen next week. If at anytime you develop fever, your symptoms should worsen, new symptoms develop or any of the signs and symptoms we discussed should arise please return to the emergency room or call 911 (if needed). 2. You can alternate Tylenol and ibuprofen as needed for pain and fever management. 3. We encourage you to follow up with urology for re-evaluation and further care/management. Definitive disposition and diagnosis as appropriate pending reevaluation and review of above. Left Flank Pain Score (Numeric/FACES): 10 - Related Data Allergies Allergy/AdvReac Type Severity Reaction Status Date / Time azithromycin Allergy Stomach Verified 07/31/21 10:01 Upset hydrocodone Allergy Hives Verified 07/31/21 10:01 Penicillins Allergy Hives Verified 07/31/21 10:01 Sulfa (Sulfonamide Allergy Hives Verified 07/31/21 10:01 Antibiotics) Home Meds: Home Meds Ciprofloxacin HCl [Cipro] 500 mg PO BID 5 Days #9 tablet 07/31/21 [Rx] FLUoxetine [PROzac] 10 mg PO DAILY 07/31/21 [History] Ketorolac [Toradol] 10 mg PO TID PRN #15 tab 07/31/21 [Rx] Norethindrone 1 tab PO DAILY 07/31/21 [History] Promethazine [Phenergan] 25 mg RECTAL Q8H PRN #10 supp.rect 07/31/21 [Rx] traMADol [Ultram] 50 mg PO Q4H PRN #20 tab 07/31/21 [Rx] traZODone 50 mg PO BEDTIME 07/31/21 [History] Past Medical History HEENT History: Reports: None Cardiovascular History: Reports: None Respiratory History: Reports: None Gastrointestinal History: Reports: Cholelithiasis Other Gastrointestinal History: states has been having occasional heart burn and right upper quad pain recently Genitourinary History: Reports: Renal Calculus COOPERER History: Reports: Other (See Below) Other COOPERER History: Partial Hysterectomy Musculoskeletal History: Reports: Gout Neurological History: Reports: Migraines Psychiatric History: Reports: Anxiety Endocrine/Metabolic History: Reports: Obesity/BMI 30+ Hematologic History: Reports: None Immunologic History: Reports: None Oncologic (Cancer) History: Reports: None Dermatologic History: Reports: None - Infectious Disease History Infectious Disease History: Reports: None - Past Surgical History Head Surgeries/Procedures: Reports: None HEENT Surgical History: Reports: Oral Surgery Other HEENT Surgeries/Procedures: states had an impacted tooth removed at age 17 Female Surgical History: Reports: Hysterectomy, Kidney stone extraction Social & Family History - Family History Family Medical History: No Pertinent Family History - Caffeine Use Caffeine Use: Reports: None ED ROS GENERAL - Review of Systems Review Of Systems: Comprehensive ROS is negative, except as noted in HPI. ED EXAM, RENAL/ - Physical Exam Exam: See Below (See dictation) Course - Vital Signs Last Recorded V/S: Last Vital Signs Temp 96.7 F L 07/31/21 10:01 Pulse 84 07/31/21 10:01 Resp 16 07/31/21 10:01 BP 130/84 07/31/21 10:01 Pulse Ox 94 L 07/31/21 10:01 - Orders/Labs/Meds Orders: Active Orders 24 hr Category Date Time Status CULTURE URINE [MREF] Stat Lab 07/31/21 11:15 Received Labs: Laboratory Tests 07/31/21 07/31/21 07/31/21 Range/Units 10:10 10:10 10:10 WBC 8.20 (4.0-11.0) K/uL RBC 5.14 (4.30-5.90) M/uL Hgb 15.1 (12.0-16.0) g/dL Hct 44.5 (36.0-46.0) % MCV 86.6 (80.0-98.0) fL MCH 29.4 (27.0-32.0) pg MCHC 33.9 (31.0-37.0) g/dL RDW Std Deviation 40.4 (28.0-62.0) fl RDW Coeff of Wallace 13 (11.0-15.0) % Plt Count 307 (150-400) K/uL MPV 9.70 (7.40-12.00) fL Neut % (Auto) 58.4 (48.0-80.0) % Lymph % (Auto) 33.4 (16.0-40.0) % [place] % (Auto) 6.3 (0.0-15.0) % Eos % (Auto) 1.7 (0.0-7.0) % Baso % (Auto) 0.2 (0.0-1.5) % Neut # (Auto) 4.8 (1.4-5.7) K/uL Lymph # (Auto) 2.7 H (0.6-2.4) K/uL [place] # (Auto) 0.5 (0.0-0.8) K/uL Eos # (Auto) 0.1 (0.0-0.7) K/uL Baso # (Auto) 0.0 (0.0-0.1) K/uL Nucleated RBC % 0.0 /100WBC Nucleated RBCs # 0 K/uL Sodium (136-145) mmol/L Potassium (3.5-5.1) mmol/L Chloride (98-107) mmol/L Carbon Dioxide (21.0-32.0) mmol/L BUN (7.0-18.0) mg/dL Creatinine (0.6-1.0) mg/dL Est Cr Clr Drug Dosing mL/min Estimated GFR (MDRD) ml/min Glucose (74-106) mg/dL Calcium (8.5-10.1) mg/dL Total Bilirubin (0.2-1.0) mg/dL AST (15-37) IU/L ALT (14-63) IU/L Alkaline Phosphatase (46-116) U/L Total Protein (6.4-8.2) g/dL Albumin (3.4-5.0) g/dL Globulin (2.6-4.0) g/dL Albumin/Globulin Ratio (0.9-1.6) Urine Color YELLOW Urine Appearance CLOUDY Urine pH 6.0 (5.0-8.0) Ur Specific H[place] 1.025 (1.001-1.035) Urine Protein NEGATIVE (NEGATIVE) mg/dL Urine Glucose (UA) NEGATIVE (NEGATIVE) mg/dL Urine Ketones NEGATIVE (NEGATIVE) mg/dL Urine Occult Blood MODERATE H (NEGATIVE) Urine Nitrite NEGATIVE (NEGATIVE) Urine Bilirubin NEGATIVE (NEGATIVE) Urine Urobilinogen 0.2 (<2.0) EU/dL Ur Leukocyte Esterase SMALL H (NEGATIVE) Urine RBC 4-8 (0-2/HPF) Urine WBC 25-30 (0-5/HPF) Ur Epithelial Cells MANY (NONE-FEW) Urine Bacteria 4+ H (NEGATIVE) Urine Mucus LIGHT (NONE-MOD) Urinalysis Comment Urine HCG, Qual NEGATIVE (NEGATIVE) 07/31/21 Range/Units 10:10 WBC (4.0-11.0) K/uL RBC (4.30-5.90) M/uL Hgb (12.0-16.0) g/dL Hct (36.0-46.0) % MCV (80.0-98.0) fL MCH (27.0-32.0) pg MCHC (31.0-37.0) g/dL RDW Std Deviation (28.0-62.0) fl RDW Coeff of Wallace (11.0-15.0) % Plt Count (150-400) K/uL MPV (7.40-12.00) fL Neut % (Auto) (48.0-80.0) % Lymph % (Auto) (16.0-40.0) % [place] % (Auto) (0.0-15.0) % Eos % (Auto) (0.0-7.0) % Baso % (Auto) (0.0-1.5) % Neut # (Auto) (1.4-5.7) K/uL Lymph # (Auto) (0.6-2.4) K/uL [place] # (Auto) (0.0-0.8) K/uL Eos # (Auto) (0.0-0.7) K/uL Baso # (Auto) (0.0-0.1) K/uL Nucleated RBC % /100WBC Nucleated RBCs # K/uL Sodium 138 (136-145) mmol/L Potassium 3.8 (3.5-5.1) mmol/L Chloride 101 (98-107) mmol/L Carbon Dioxide 28.5 (21.0-32.0) mmol/L BUN 10 (7.0-18.0) mg/dL Creatinine 1.0 (0.6-1.0) mg/dL Est Cr Clr Drug Dosing 64.95 mL/min Estimated GFR (MDRD) > 60.0 ml/min Glucose 111 H (74-106) mg/dL Calcium 9.6 (8.5-10.1) mg/dL Total Bilirubin 0.4 (0.2-1.0) mg/dL AST 22 (15-37) IU/L ALT 25 (14-63) IU/L Alkaline Phosphatase 106 (46-116) U/L Total Protein 7.5 (6.4-8.2) g/dL Albumin 3.7 (3.4-5.0) g/dL Globulin 3.8 (2.6-4.0) g/dL Albumin/Globulin Ratio 1.0 (0.9-1.6) Urine Color Urine Appearance Urine pH (5.0-8.0) Ur Specific Hays (1.001-1.035) Urine Protein (NEGATIVE) mg/dL Urine Glucose (UA) (NEGATIVE) mg/dL Urine Ketones (NEGATIVE) mg/dL Urine Occult Blood (NEGATIVE) Urine Nitrite (NEGATIVE) Urine Bilirubin (NEGATIVE) Urine Urobilinogen (<2.0) EU/dL Ur Leukocyte Esterase (NEGATIVE) Urine RBC (0-2/HPF) Urine WBC (0-5/HPF) Ur Epithelial Cells (NONE-FEW) Urine Bacteria (NEGATIVE) Urine Mucus (NONE-MOD) Urinalysis Comment Urine HCG, Qual (NEGATIVE) Meds: Medications Discontinued Medications Generic Name Dose Route Start Last Admin Trade Name Freq PRN Reason Stop Dose Admin Ciprofloxacin 500 mg 07/31/21 11:09 07/31/21 11:16 Ciprofloxacin 500 Mg Tab PO 07/31/21 11:10 500 mg ONETIME ONE Administration Sodium Chloride 1,000 mls @ 999 mls/hr 07/31/21 10:13 07/31/21 10:18 Normal Saline IV 07/31/21 11:13 999 mls/hr .Bolus ONE Administration Ketorolac Tromethamine 30 mg 07/31/21 10:13 07/31/21 10:16 Ketorolac 30 Mg/Ml Sdv IVPUSH 07/31/21 10:14 30 mg ONETIME ONE Administration Ondansetron HCl 4 mg 07/31/21 10:13 07/31/21 10:16 Ondansetron 4 Mg/2 Ml Sdv IVPUSH 07/31/21 10:14 4 mg ONETIME ONE Administration Departure - Departure Time of Disposition: 11:36 Disposition: Home, Self-Care Clinical Impression: UTI, Urinary tract infectious disease, Kidney stone on left side - Discharge Information Prescriptions: Ciprofloxacin HCl [Cipro] 500 mg PO BID 5 Days #9 tablet Promethazine [Phenergan] 25 mg RECTAL Q8H PRN #10 supp.rect PRN Reason: Nausea Ketorolac [Toradol] 10 mg PO TID PRN #15 tab PRN Reason: Pain traMADol [Ultram] 50 mg PO Q4H PRN #20 tab PRN Reason: Pain Instructions: Kidney Stones, [id number] Referrals: Aimee Toribio [employer]ER SERVICER [Primary Care Provider] - Forms: ED Department Discharge Additional Instructions: The following information is given to patients seen in the emergency department who are being discharged to home. This information is to outline your options for follow-up care. We provide all patients seen in our emergency department with a follow-up referral. The need for follow-up, as well as the timing and circumstances, are variable depending upon the specifics of your emergency department visit. If you don't have a primary care physician on staff, we will provide you with a referral. We always advise you to contact your personal physician following an emergency department visit to inform them of the circumstance of the visit and for follow-up with them and/or the need for any referrals to a consulting specialist. The emergency department will also refer you to a specialist when appropriate. This referral assures that you have the opportunity for follow-up care with a specialist. All of these measure are taken in an effort to provide you with optimal care, which includes your follow-up. Under all circumstances we always encourage you to contact your private physician who remains a resource for coordinating your care. When calling for follow-up care, please make the office aware that this follow-up is from your recent emergency room visit. If for any reason you are refused follow-up, please contact the [facility] Emergency Department at and asked to speak to the emergency department charge nurse. Dr. Harrington and Dr Lacy [facility] - Urology [address] [place] [address] (Located on 5th Floor) [place] [address] [facility] [address] [place] [address] [place] [address] Dr Wagner Hernandez [facility] - Urology [facility] [address] Dr Sriram Arevalo [facility] [address] [place] [address] Thank you for choosing the [facility] emergency department in [place] for your medical needs today. It was a pleasure caring for you. Today you were seen in the emergency department for kidney stone Your prescription was electronically sent to: [place] pharmacy 1. You were evaluated today on an emergent basis. Your CT shows a cluster of stones in the left ureter. I did speak with Dr Florence at [facility] about your case. He would like you to call the urology clinic early Monday to be seen next week. If at anytime you develop fever, your symptoms should worsen, new symptoms develop or any of the signs and symptoms we discussed should arise please return to the emergency room or call 911 (if needed). 2. You can alternate Tylenol and ibuprofen as needed for pain and fever management. 3. We encourage you to follow up with urology for re-evaluation and further care/management. Sepsis Event Note (ED) - Focused Exam Vital Signs: Vital Signs Temp Pulse Resp BP Pulse Ox 07/31/21 10:01 96.7 F L 84 16 130/84 94 L - My Orders Last 24 Hours: My Active Orders 07/31/21 11:15 CULTURE URINE [MREF] Stat - Assessment/Plan Last 24 Hours: My Active Orders 07/31/21 11:15 CULTURE URINE [MREF] Stat
[2021-07-31] MEDS ORDERED: Sodium Chloride 0.9% 1,000 ML IV ONE (10:13)
[2021-07-31] MEDS ORDERED: Ondansetron 4 MG/2 ML SDV IVPUSH ONE (10:13)
[2021-07-31] MEDS ORDERED: Ketorolac 30 MG/ML SDV IVPUSH ONE (10:13)
[2021-07-31 10:49] LABS: BLOOD UREA NITROGEN,BUN 10 mg/dL (7.0-18.0); CARBON DIOXIDE,CO2 28.5 mmol/L (21.0-32.0); CHLORIDE,CL 101 mmol/L (98-107); GLUCOSE RANDOM 111 mg/dL (74-106); POTASSIUM,K 3.8 mmol/L (3.5-5.1); SODIUM,NA 138 mmol/L (136-145)
[2021-07-31] MEDS ORDERED: Ciprofloxacin 500 MG Tab PO ONE (11:09)
--- NOTE | 2021-07-31 11:13 | CT ---
Indication: Left flank pain Technique: Noncontrast CT abdomen and pelvis Please note that all CT scans at this facility use dose modulation, iterative reconstruction, and/or weight-based dosing when appropriate to reduce radiation dose to as low as reasonably achievable. Comparison: March 22, 2021 Findings: There is now a cluster of stones within the distal left ureter just above the ureterovesical junction measuring in total 6 millimeters in length. Additional stone within the bladder at the UVJ measuring 3 millimeters. The bladder is relatively nondistended. Left hydroureter is present with left hydronephrosis. Calcification in the midportion of the left kidney is present measuring 4 millimeters. Right kidney is normal without stones. Normal right ureter. Interval clearing of excess pelvic free fluid compared to the prior study and resolution of right ovarian cyst. Left ovary normal. No bowel obstruction or free air. No abscess. No colitis or enteritis. Normal appendix. No adenopathy. Liver normal. Gallbladder absent. Spleen unremarkable. Normal pancreas. Lung bases clear. Osseous structures unremarkable. Impression: Obstructing cluster of stones in the distal left ureter/ureterovesical junction measuring up to approximately 6 millimeters in total. Three or 4 stones appear to be present. There is left hydroureteronephrosis. Please note that all CT scans at this facility use dose modulation, iterative reconstruction, and/or weight-based dosing when appropriate to reduce radiation dose to as low as reasonably achievable. Dictated by Charanjit Harding MD @ 07/31/2021 11:11:19 AM (Electronically Signed)
== END 2021-07-31 12:01 | disposition home or self-care (01) ==
LOC: MW.ED 09:58
DX: N13.2 Hydronephrosis with renal and ureteral calculous obstruction (principal); N39.0 Urinary tract infection, site not specified; E66.9 Obesity, unspecified; Z68.30 Body mass index [BMI] 30.0-30.9, adult; Z88.2 Allergy status to sulfonamides; Z88.1 Allergy status to other antibiotic agents; Z88.5 Allergy status to narcotic agent; Z88.0 Allergy status to penicillin; Z79.899 Other long term (current) drug therapy
CPT/HCPCS: 36415; 74176; 80053; 81001; 81025; 85025; 87086; 87088; 87186; 96374; 96375; 99284; A9270; J1885; J2405; J7030

== ENCOUNTER 2022-09-04 13:32 | Emergency (ER) | payer BC, OTHER ==
[2022-09-04] MEDS ORDERED: Sodium Chloride 0.9% 1,000 ML IV ONE (14:08)
[2022-09-04] MEDS ORDERED: Ketorolac 30 MG/ML SDV IVPUSH ONE (14:08)
[2022-09-04] MEDS ORDERED: Ondansetron 4 MG/2 ML SDV ONE (14:18)
[2022-09-04] MEDS ORDERED: Ondansetron 4 MG/2 ML SDV IVPUSH ONE (14:19)
[2022-09-04 14:25] LABS: CARBON DIOXIDE,CO2 26.4 mmol/L (21.0-32.0); POTASSIUM,K 3.7 mmol/L (3.5-5.1)
[2022-09-04 15:31] LABS: CORONAVIRUS COVID-19 NAA NEGATIVE (NEGATIVE); INFLUENZA A NAA NEGATIVE (NEGATIVE); INFLUENZA B NAA NEGATIVE (NEGATIVE)
[2022-09-04] MEDS ORDERED: traMADol 50 MG Tab PO ONE (16:13)
== END 2022-09-04 18:14 | disposition home or self-care (01) ==
LOC: MW.ED 13:32
DX: R10.11 Right upper quadrant pain (principal); R19.7 Diarrhea, unspecified; E66.9 Obesity, unspecified; Z68.31 Body mass index [BMI] 31.0-31.9, adult; Z88.1 Allergy status to other antibiotic agents; Z88.5 Allergy status to narcotic agent; Z88.0 Allergy status to penicillin; Z88.2 Allergy status to sulfonamides; Z79.899 Other long term (current) drug therapy; Z20.822 Contact with and (suspected) exposure to COVID-19
CPT/HCPCS: 0240U; 36415; 74176; 80053; 81001; 81025; 83605; 83690; 84703; 85025; 96361; 96374; 96375; 99284; A9270; J1885; J2405; J7030

== ENCOUNTER 2024-12-10 07:13 | Day surgery (SDC) | payer OTHER ==
[2024-12-10] MEDS ORDERED: Sodium Chloride 0.9% 2.5 ML Syringe FLUSH PRN (07:18)
[2024-12-10] MEDS ORDERED: Sodium Chloride 0.9% 10 ML Syringe FLUSH PRN (07:18)
[2024-12-10 07:30] LABS: BASOPHILS ABSOLUTE AUTO 0.05 K/uL (0.00-0.20); BASOPHILS PERCENT AUTO 0.6 % (0.0-1.0); EOSINOPHILS ABSOLUTE AUTO 0.21 K/uL (0.00-0.45); EOSINOPHILS PERCENT AUTO 2.5 % (0.0-6.0); HEMATOCRIT 40.5 % (37.0-47.0); HEMOGLOBIN 14.1 g/dL (12.0-16.0); IMMATURE GRAN ABSOLUTE AUTO 0.04 K/uL (0.00-0.05); IMMATURE GRAN PERCENT AUTO 0.5 % (0.0-0.4); LYMPHOCYTES ABSOLUTE AUTO 1.66 K/uL (1.00-4.80); LYMPHOCYTES PERCENT AUTO 19.5 % (24.0-44.0); MEAN CORPUSCULAR HEMOGLOBIN 29.6 pg (28.0-32.0); MEAN CORPUSCULAR HGB CONC 34.8 g/dL (32.0-36.0); MEAN CORPUSCULAR VOLUME 85.1 fL (83.0-99.0); MONOCYTES ABSOLUTE AUTO 0.68 K/uL (0.00-0.80); NEUTROPHILS ABSOLUTE AUTO 5.88 K/uL (1.80-7.70); NEUTROPHILS PERCENT AUTO 68.9 % (41.0-71.0); PLATELET COUNT,PLT 276 K/uL (150-400); RED BLOOD CELL COUNT 4.76 M/uL (4.10-5.30); WHITE BLOOD CELL COUNT,WBC 8.52 K/uL (3.9-11.3)
[2024-12-10 07:39] LABS: APPEARANCE,URINE SLT CLOUDY; BILIRUBIN,URINE NEGATIVE (NEGATIVE); COLOR,URINE YELLOW; GLUCOSE,URINE NEGATIVE (NEGATIVE); KETONES,URINE NEGATIVE (NEGATIVE); LEUKOCYTE ESTERASE,URINE NEGATIVE (NEGATIVE); NITRITE,URINE NEGATIVE (NEGATIVE); OCCULT BLOOD,URINE MODERATE (NEGATIVE); PROTEIN,URINE NEGATIVE (NEGATIVE); UROBILINOGEN,URINE 0.2 EU/dL (<2.0)
[2024-12-10 07:46] LABS: BACTERIA,URINE 1+ (NEGATIVE); EPITHELIAL CELLS,URINE MODERATE (NONE-FEW); RBC,URINE 0-3 (0-2/HPF); WBC,URINE 0-4 (0-5/HPF)
[2024-12-10 07:59] LABS: A/G RATIO 0.9 (0.9-1.6); ALBUMIN 3.3 g/dL (3.4-5.0); BILIRUBIN TOTAL 0.5 mg/dL (0.2-1.0); CALCIUM 9.5 mg/dL (8.5-10.1); CARBON DIOXIDE,CO2 29.4 mmol/L (21.0-32.0); EST CRCL DRUG DOSING (CG) 68.64 mL/min; POTASSIUM,K 4.1 mmol/L (3.5-5.1); PROTEIN TOTAL,TP 7.2 g/dL (6.4-8.2)
[2024-12-10] MEDS: Ketorolac 30 MG/ML SDV IVPUSH ONE (08:48)
[2024-12-10] MEDS: Ondansetron 4 MG/2 ML SDV IVPUSH ONE (08:54)
[2024-12-10] MEDS: Iopamidol 755 MG/ML 500 ML Multipack Bottle IVPUSH STA (08:57)
[2024-12-10] MEDS: Ertapenem 1 GM in Sodium Chloride 0.9% 50 ML IV ONE (10:09)
[2024-12-10] MEDS ORDERED: Bupivacaine 0.5% 30 ML SDV ONE (11:55)
[2024-12-10] MEDS: HYDROmorphone 0.5 MG/0.5 ML Syringe IVPUSH PRN ×2 (13:18→23:58)
[2024-12-10] MEDS: Sodium Chloride 0.9% 1,000 ML IV SCH (13:19)
[2024-12-10] MEDS ORDERED: Ropivacaine 0.5% 5 MG/ML 30 ML SDV ONE (14:17)
[2024-12-10] MEDS ORDERED: Propofol 200 MG/20 ML SDV ONE (14:19)
[2024-12-10] MEDS ORDERED: Lidocaine 2% 5 ML SDV ONE (14:19)
[2024-12-10] MEDS ORDERED: Midazolam 1 MG/ML 2 ML SDV ONE (14:19)
[2024-12-10] MEDS ORDERED: fentaNYL 100 MCG/2 ML SDV ONE ×2 (14:19→16:38)
[2024-12-10] MEDS ORDERED: Rocuronium Bromide 50 MG/5 ML Syringe ONE (14:20)
[2024-12-10] MEDS ORDERED: Sodium Chloride 0.9% 20 ML ONE (14:24)
[2024-12-10] MEDS ORDERED: dexmedeTOMIDine HCl 200 MCG/2 ML SDV ONE (14:24)
[2024-12-10] MEDS: Ondansetron 4 MG/2 ML SDV IVPUSH PRN (14:25)
[2024-12-10] MEDS ORDERED: Ketorolac 30 MG/ML SDV ONE (16:34)
[2024-12-10] MEDS ORDERED: Dexamethasone 4 MG/ML 5 ML MDV ONE (16:34)
[2024-12-10] MEDS ORDERED: Ondansetron 4 MG/2 ML SDV ONE (16:34)
[2024-12-10] MEDS ORDERED: Phenylephrine HCl In 0.9% NaCl 1 MG/10 ML Syringe ONE (16:34)
[2024-12-10] MEDS ORDERED: Sugammadex Sodium 200 MG/2 ML VIAL IV ONE (16:34)
[2024-12-10] MEDS ORDERED: HYDROmorphone 2 MG/ML Syringe IVPUSH PRN (17:32)
[2024-12-10] MEDS ORDERED: Ondansetron 4 MG/2 ML SDV IVPUSH PRN ×2 (17:32→17:44)
[2024-12-10] MEDS ORDERED: Naloxone 0.4 MG/ML SDV IVPUSH PRN ×2 (17:37→17:44)
[2024-12-10] MEDS ORDERED: HYDROmorphone 1 MG/ML Syringe IVPUSH PRN (17:44)
[2024-12-10] MEDS ORDERED: Morphine 2 MG/ML SYRINGE IVPUSH PRN (17:44)
[2024-12-10] MEDS ORDERED: fentaNYL 50 MCG/ML SDV IVPUSH PRN (17:44)
[2024-12-10] MEDS ORDERED: Metoclopramide 10 MG/2 ML SDV IVPUSH PRN (17:44)
[2024-12-10] MEDS ORDERED: Phenylephrine HCl In 0.9% NaCl 1 MG/10 ML Syringe IVPUSH PRN (17:44)
[2024-12-10] MEDS ORDERED: Albuterol 0.083% 2.5 MG/3 ML Neb Soln NEB PRN (17:44)
[2024-12-10] MEDS ORDERED: Sodium Chloride 0.9% 1,000 ML IV SCH (17:45)
[2024-12-10] MEDS: Ketorolac 30 MG/ML SDV IVPUSH SCH (18:33)
[2024-12-11] MEDS ORDERED: Ketorolac 10 MG Tab PO PRN (11:46)
== END 2024-12-11 10:30 | disposition home or self-care (01) ==
LOC: MW.ED 07:13 → MW.SDS 11:05 → MW.MS 11:07 → MW.SDS 12-11 10:30
PROVIDERS: ATTEND Surgery
DX: K35.80 Unspecified acute appendicitis (principal); E66.9 Obesity, unspecified; Z88.8 Allergy status to other drugs, medicaments and biological substances; Z88.1 Allergy status to other antibiotic agents; Z88.5 Allergy status to narcotic agent; Z68.30 Body mass index [BMI] 30.0-30.9, adult; Z79.899 Other long term (current) drug therapy
CPT/HCPCS: 36415; 44970; 74177; 80053; 81001; 81025; 83690; 85025; 96365; 96375; 99285; J0665; J1100; J1335; J1885; J2003; J2250; J2405; J2704; J2795; J3010; J7030; Q9967; 00840; 64488; 99284; J2371; J3490